=== PATIENT | male | born 1965 | race Two or more races ===

== ENCOUNTER 2016-07-27 05:54 | Day surgery (SDC) | payer OTHER ==
[~2016-07-27] VITALS: Ht 162.6 cm; Wt 73.5 kg
[2016-07-27 06:38] VITALS: Ht 162.6 cm; Wt 73.5 kg
[2016-07-27 07:23] VITALS: BP 121/69; PULSE 59
[2016-07-27] MEDS ORDERED: MIDAZOLAM 1 MG/ML 2 ML INJ ONE ×2 (08:12)
[2016-07-27 08:35] VITALS: BP 115/77; PULSE 59; RESP 19
--- NOTE | 2016-07-27 11:21 | GILP ---
DATE OF PROCEDURE: 07/27/2016 NAME OF PROCEDURE: Colonoscopy and biopsy. SURGEON: Trudy Westfall MD PREOPERATIVE DIAGNOSIS: Screening colonoscopy. POSTOPERATIVE DIAGNOSES 1. Colonoscopy all the way to the cecum. 2. Three small colon polyps were removed using the biopsy forceps. 3. Internal hemorrhoids. INDICATION FOR THE PROCEDURE: Mr. Samson Lopez is a 51-year-old male patient who was scheduled for screening colonoscopy. The procedure and possible complications were well explained to the patient, he understood and conse nted to the procedure. DESCRIPTION OF PROCEDURE: Under the influence of fentanyl and Versed, the colonoscope was carefully introduced in the rectum and under direct vision, it was advanced all the way to the cecum. FINDINGS: The patient had 3 small colon polyps and they were removed using the biopsy forceps. He was noted to have internal hemorrhoids. He tolerated the procedure very well and there was no complication from the procedure. At the end o f the procedure, he was awake with stable vital signs and he was discharged home to the care of his family. IMPRESSION: 1. Colonoscopy all the way to the cecum. 2. Three small colon polyps were removed using the biopsy forceps. 3. Internal hemorrhoids. PLAN: 1. Await histopathology report. 2. Next screening colonoscopy in 5 years. Dictated By: TRUDY QUINTERO/ALEXEI Conf#: [id number] DID#: [id number] CC: TRUDY WESTFALL MD;*EndCC*
== END 2016-07-27 08:29 | disposition home or self-care (01) ==
LOC: GIL 05:54
PROVIDERS: ATTEND Internal Medicine Gastroenterology
DX: Z12.11 Encounter for screening for malignant neoplasm of colon (principal); K63.5 Polyp of colon; K64.8 Other hemorrhoids
CPT/HCPCS: 45380; 88305; J2250